=== PATIENT | female | born 1955 | race Caucasian/White ===

== ENCOUNTER 2016-10-20 09:21 | Outpatient (CLI) | payer BC ==
[2016-10-20 10:48] LABS: BASOPHILS % (AUTO) 0.6 % (0.0-2.0); EOSINOPHILS # (AUTO) 0.3 /CMM (0.0-0.7); EOSINOPHILS % (AUTO) 4.2 % (0.0-6.0); HEMATOCRIT 42 % (33-45); HEMOGLOBIN 13.9 g/dL (11.5-14.8); LYMPHOCYTES # (AUTO) 1.8 /CMM (0.8-4.8); LYMPHOCYTES % (AUTO) 29.4 % (20.0-44.0); MEAN CORPUSCULAR HEMOGLOBIN 31 PG (26.0-33.0); MEAN CORPUSCULAR HGB CONC 33 g/dl (31.0-36.0); MEAN CORPUSCULAR VOLUME 92 fL (82-100); MONOCYTES # (AUTO) 0.5 /CMM (0.1-1.30); NEUTROPHILS # (AUTO) 3.5 /CMM (1.8-8.9); NEUTROPHILS % (AUTO) 57.8 % (43.0-81.0); PLATELET COUNT (AUTO) 238 /CMM (150-450); RDW COEFFICIENT OF VARIATION 13.3 (11.5-15.0); RED BLOOD CELL COUNT(AUTO) 4.55 MIL/uL (4.0-5.2)
[2016-10-20 11:12] LABS: ALBUMIN 3.8 g/dL (3.4-5.0); BILIRUBIN,TOTAL 0.3 mg/dL (0.2-1.0); CALCIUM, SERUM 9.2 mg/dL (8.5-10.1); CREATININE 0.6 mg/dL (0.6-1.3); TOTAL PROTEIN, SERUM 6.9 g/dL (6.4-8.2)
[2016-10-20 11:22] LABS: FREE T4 (FREE THYROXINE) 1.15 ng/dL (0.76-1.46); THYROID STIMULATING HORMONE 2.824 uIU/mL (0.358-3.74)
== END 2016-10-20 23:59 | disposition home or self-care (01) ==
LOC: LAB 09:21
PROVIDERS: ATTEND Family Medicine
DX: E55.9 Vitamin D deficiency, unspecified (principal); I10 Essential (primary) hypertension
CPT/HCPCS: 36415; 80053-TC; 80061-TC; 82306; 84439-TC; 84443-TC; 85025-TC

== ENCOUNTER 2016-11-05 14:57 | Outpatient (CLI) | payer BC | END 2016-11-05 23:59 | disposition home or self-care (01) | LOC: LAB 14:57 | PROVIDERS: ATTEND Family Medicine | DX: Z11.59 Encounter for screening for other viral diseases (principal) | CPT/HCPCS: 36415; 86803 ==

== ENCOUNTER 2016-11-06 16:21 | Outpatient (CLI) | payer BC | END 2016-11-06 23:59 | disposition home or self-care (01) | LOC: LAB 16:21 | PROVIDERS: ATTEND Family Medicine | DX: Z12.4 Encounter for screening for malignant neoplasm of cervix (principal) | CPT/HCPCS: 88142 ==

== ENCOUNTER 2016-12-12 09:04 | Outpatient (CLI) | payer BC ==
[2016-12-12 09:40] LABS: BASOPHILS % (AUTO) 0.5 % (0.0-2.0); EOSINOPHILS # (AUTO) 0.2 /CMM (0.0-0.7); EOSINOPHILS % (AUTO) 2.8 % (0.0-6.0); HEMATOCRIT 41 % (33-45); HEMOGLOBIN 13.7 g/dL (11.5-14.8); LYMPHOCYTES # (AUTO) 1.8 /CMM (0.8-4.8); LYMPHOCYTES % (AUTO) 30.3 % (20.0-44.0); MEAN CORPUSCULAR HEMOGLOBIN 31 PG (26.0-33.0); MEAN CORPUSCULAR HGB CONC 34 g/dl (31.0-36.0); MEAN CORPUSCULAR VOLUME 92 fL (82-100); MONOCYTES # (AUTO) 0.4 /CMM (0.1-1.30); MONOCYTES % (AUTO) 7.5 % (2.0-12.0); NEUTROPHILS # (AUTO) 3.5 /CMM (1.8-8.9); NEUTROPHILS % (AUTO) 58.9 % (43.0-81.0); PLATELET COUNT (AUTO) 230 /CMM (150-450); RDW COEFFICIENT OF VARIATION 13.1 (11.5-15.0); RED BLOOD CELL COUNT(AUTO) 4.47 MIL/uL (4.0-5.2)
[2016-12-12 09:42] LABS: APPEARANCE,URINE CLEAR (CLEAR); BILIRUBIN,URINE NEGATIVE (NEGATIVE); BLOOD, URINE NEGATIVE Ery/uL (NEGATIVE); COLOR,URINE YELLOW (YELLOW); KETONES,URINE NEGATIVE (NEGATIVE); LEUKOCYTE ESTERASE ,URINE NEGATIVE (NEGATIVE); NITRITE, URINE NEGATIVE (NEGATIVE); PROTEIN,URINE NEGATIVE (NEGATIVE); UGLUCOSE NEGATIVE (NEGATIVE); UROBILINOGEN,URINE 0.2 EU/dL (0.2)
[2016-12-12 09:58] LABS: ALBUMIN 3.9 g/dL (3.4-5.0); BILIRUBIN,TOTAL 0.3 mg/dL (0.2-1.0); CREATININE 0.5 mg/dL (0.6-1.3); POTASSIUM 4.5 mmol/L (3.5-5.1); TOTAL PROTEIN, SERUM 7.1 g/dL (6.4-8.2)
[2016-12-12 10:06] LABS: FREE T4 (FREE THYROXINE) 1.02 ng/dL (0.76-1.46); THYROID STIMULATING HORMONE 3.078 uIU/mL (0.358-3.74)
== END 2016-12-12 23:59 | disposition home or self-care (01) ==
LOC: LAB 09:04
PROVIDERS: ATTEND Family Medicine
DX: Z12.11 Encounter for screening for malignant neoplasm of colon (principal); Z00.01 Encounter for general adult medical examination with abnormal findings; E55.9 Vitamin D deficiency, unspecified
CPT/HCPCS: 36415; 80053-TC; 80061-TC; 81000-TC; 82306; 84439-TC; 84443-TC; 85025-TC

== ENCOUNTER 2017-03-05 16:43 | Outpatient (CLI) | payer BC ==
[2017-03-07 04:09] LABS: *NEISSERIA GONORRHOEAE NAA Negative (Negative); CHLAMYDIA TRACHOMATIS NAA Negative (Negative)
== END 2017-03-05 23:59 | disposition home or self-care (01) ==
LOC: LAB 16:43
PROVIDERS: ATTEND Family Medicine
DX: Z12.4 Encounter for screening for malignant neoplasm of cervix (principal); Z11.3 Encounter for screening for infections with a predominantly sexual mode of transmission
CPT/HCPCS: 87491; 87591; 88142

== ENCOUNTER 2017-11-12 16:10 | Outpatient (CLI) | payer BC ==
[2017-11-12 16:35] LABS: BASOPHILS % (AUTO) 0.7 % (0.0-2.0); EOSINOPHILS % (AUTO) 3.5 % (0.0-6.0); HEMATOCRIT 40 % (33-45); HEMOGLOBIN 13.5 g/dL (11.5-14.8); LYMPHOCYTES # (AUTO) 2.2 /CMM (0.8-4.8); LYMPHOCYTES % (AUTO) 33.2 % (20.0-44.0); MEAN CORPUSCULAR HGB CONC 34 g/dl (31.0-36.0); MEAN CORPUSCULAR VOLUME 92 fL (82-100); MONOCYTES # (AUTO) 0.5 /CMM (0.1-1.30); MONOCYTES % (AUTO) 8.4 % (2.0-12.0); NEUTROPHILS # (AUTO) 3.6 /CMM (1.8-8.9); NEUTROPHILS % (AUTO) 54.2 % (43.0-81.0); PLATELET COUNT (AUTO) 257 /CMM (150-450); RDW COEFFICIENT OF VARIATION 12.6 (11.5-15.0); RED BLOOD CELL COUNT(AUTO) 4.32 MIL/uL (4.0-5.2); WHITE BLOOD COUNT (AUTO) 6.5 K/uL (4.3-11.0)
[2017-11-12 16:40] LABS: APPEARANCE,URINE SL CLOUDY (CLEAR); BILIRUBIN,URINE NEGATIVE (NEGATIVE); BLOOD, URINE NEGATIVE Ery/uL (NEGATIVE); COLOR,URINE YELLOW (YELLOW); KETONES,URINE NEGATIVE (NEGATIVE); LEUKOCYTE ESTERASE ,URINE NEGATIVE (NEGATIVE); NITRITE, URINE NEGATIVE (NEGATIVE); PH,URINE 7.5 (5.0-8.0); PROTEIN,URINE NEGATIVE (NEGATIVE); UGLUCOSE NEGATIVE (NEGATIVE); UROBILINOGEN,URINE 0.2 EU/dL (0.2)
[2017-11-12 17:06] LABS: ALBUMIN 3.8 g/dL (3.4-5.0); BILIRUBIN,TOTAL 0.3 mg/dL (0.2-1.0); CALCIUM, SERUM 9.8 mg/dL (8.5-10.1); CREATININE 0.6 mg/dL (0.6-1.3); POTASSIUM 4.2 mmol/L (3.5-5.1); TOTAL PROTEIN, SERUM 7.2 g/dL (6.4-8.2)
[2017-11-12 17:15] LABS: THYROID STIMULATING HORMONE 2.54 uIU/mL (0.358-3.74)
[2017-11-13 09:51] LABS: FREE T4 (FREE THYROXINE) 1.15 ng/dL (0.76-1.46)
[2017-11-18 11:43] LABS: OCCULT BLOOD STOOL NEGATIVE (NEGATIVE)
[2017-11-18 11:43] LABS: OCCULT BLOOD STOOL NEGATIVE (NEGATIVE)
[2017-11-18 11:43] LABS: OCCULT BLOOD STOOL NEGATIVE (NEGATIVE)
== END 2017-11-12 23:59 | disposition home or self-care (01) ==
LOC: LAB 16:10
PROVIDERS: ATTEND Family Medicine
DX: Z00.01 Encounter for general adult medical examination with abnormal findings (principal); Z12.11 Encounter for screening for malignant neoplasm of colon; Z11.59 Encounter for screening for other viral diseases; R79.89 Other specified abnormal findings of blood chemistry; E78.5 Hyperlipidemia, unspecified
CPT/HCPCS: 36415; 80053-TC; 80061-TC; 81000-TC; 82272-TC; 82306; 84439-TC; 84443-TC; 85025-TC; 86709-TC; 86803

== ENCOUNTER 2019-07-29 17:45 | Emergency (ER) | payer BC, OTHER ==
[~2019-07-29] VITALS: Ht 149.9 cm; Wt 49.9 kg
[2019-07-29 17:58] VITALS: BP 168/101
[2019-07-29] MEDS ORDERED: DOCUSATE SODIUM LIQ 100 MG/10 ML UDC ONE (18:18)
[2019-07-29] MEDS ORDERED: DOCUSATE SODIUM LIQ 100 MG/10 ML UDC NG ONE (18:30)
== END 2019-07-29 20:48 | disposition home or self-care (01) ==
LOC: ER 17:48
DX: H61.21 Impacted cerumen, right ear (principal)

== ENCOUNTER 2020-03-13 15:44 | Emergency (ER) | payer BC, OTHER ==
[~2020-03-13] VITALS: Ht 149.9 cm; Wt 54.4 kg
--- NOTE | 2020-03-13 16:15 | NUR ---
c/o right hand pain s/p slipped and fall, denies pain,-ko slipped and fall last night at home too, back of the head lac,-ko. Patient a/ox4, breathing even and unlabored, no sob noted. Needs attended.
--- NOTE | 2020-03-13 16:49 | NUR ---
patient taken to CT
--- NOTE | 2020-03-13 18:26 | NUR ---
Patient discharged to home in stable condition. Written and verbal after care instructions given. Patient verbalizes understanding of instruction.
[2020-03-13 18:27] VITALS: BP 178/113
== END 2020-03-13 18:27 | disposition home or self-care (01) ==
LOC: ER 15:45
DX: S00.03XA Contusion of scalp, initial encounter (principal); M25.531 Pain in right wrist; I25.10 Atherosclerotic heart disease of native coronary artery without angina pectoris; W01.0XXA Fall on same level from slipping, tripping and stumbling without subsequent striking against object, initial encounter; Y93.89 Activity, other specified; Y92.238 Other place in hospital as the place of occurrence of the external cause; Y99.8 Other external cause status
CPT/HCPCS: 70450-TC; 73110

== ENCOUNTER 2022-11-06 07:28 | Outpatient (CLI) | payer BC | END 2022-11-06 23:59 | disposition home or self-care (01) | LOC: CARD 07:28 | PROVIDERS: ATTEND Family Medicine | DX: M79.605 Pain in left leg (principal); M25.475 Effusion, left foot; M25.552 Pain in left hip | CPT/HCPCS: 73502; 73552; 93971-TC ==